=== PATIENT | female | born 1950 | race Caucasian/White ===

== ENCOUNTER → 2024-02-18 | Outpatient (CLI) | payer BC, MEDICARE, SELFPAY ==
--- NOTE | 2024-02-18 14:30 | XR_ITS ---
Examination: Bone densitometry Date and time of exam:February 18, 2024 1432 hours INDICATIONS: Hysterectomy age 40, family history mother hip fracture vitamin D 10 years Technique: Lumbar spine and hip total bone mineralization values of an calculated. Peak reference and age match control results have been displayed. Findings: Lumbar spine total bone mineralization is1.023 gm/cm2. This is 0.2 standard deviations below peak reference. This is 2.1 standard deviations above age-matched controls. Hip total bone mineralization is 0.832 gm/cm2 This is 0.9 standard deviations below peak reference. This is 0.8 standard deviations above age-matched controls Impression: There is normal mineralization based on lumbar spine measurements. There is osteopenia based on hip measurements
== END | disposition home or self-care (01) ==
PROVIDERS: PCP Family Medicine; Referring Provider Family Medicine; Visit Provider Family Medicine
DX: M85.80 Other specified disorders of bone density and structure, unspecified site (principal)
CPT/HCPCS: 77080

== ENCOUNTER → 2024-11-03 | Outpatient (CLI) | payer BC, MEDICARE, SELFPAY ==
--- NOTE | 2024-11-03 09:23 | XR_ITS ---
Examination:Left hip AP, lateral, AP pelvis 3 views Technique: Hip AP lateral, AP pelvis, 3 views Exam date and time:October 26, 2024, 0948 hours INDICATIONS: Left hip pain one month. FINDINGS: Mild to moderate bilateral hip osteoarthritis No hip fractures or dislocations IMPRESSION: Mild to moderate bilateral hip osteoarthritis.
== END | disposition home or self-care (01) ==
PROVIDERS: Referring Provider Orthopaedic Surgery; Visit Provider Orthopaedic Surgery
DX: M16.0 Bilateral primary osteoarthritis of hip (principal)
CPT/HCPCS: 73502